=== PATIENT | female | born 1965 | race Caucasian/White ===

== ENCOUNTER 2020-05-10 14:38 | Inpatient (IN) | payer OTHER ==
[2020-05-10] MEDS ORDERED: IPRATROPIUM-ALBUTEROL 3 ML NEB INHALATION STA (14:56)
[2020-05-10] MEDS ORDERED: DEXAMETHASONE SOD PHOSPHATE 10 MG/ML 1 ML VIAL IV STA (14:56)
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
[2020-05-10 15:43] LABS: VBG PH 7.31 (7.31-7.41)
--- NOTE | 2020-05-10 15:44 | XR ---
EXAMINATION TYPE: XR chest 1V portable DATE OF EXAM: 05/10/2020 COMPARISON: NONE HISTORY: Shortness of breath TECHNIQUE: Single frontal view of the chest is obtained. FINDINGS: The heart is markedly enlarged and there is a diffuse interstitial pattern. Subsegmental c onsolidation along the right heart border and right lower lobe. Patient is rotated which may account for the prominence of the right hilum. IMPRESSION: 1. Severe cardiomegaly with right perihilar and lower lobe infiltrate. Interstitial pneumonitis or ve nous congestion the differential diagnosis. 2. Right hilar mass not excluded consider follow-up short-term CT scan chest.
[2020-05-10 15:55] LABS: ALT 15 U/L (4-34); AST 29 U/L (14-36); African American GFR (CKD) >90 (>60 ml/min/1.73 sqM); Albumin 3.5 g/dL (3.5-5.0); Alkaline Phosphatase 101 U/L (38-126); Anion Gap 5 mmol/L; Blood Urea Nitrogen 9 mg/dL (7-17); Calcium 8.6 mg/dL (8.4-10.2); Carbon Dioxide 31 mmol/L (22-30); Chloride 103 mmol/L (98-107); Glucose 84 mg/dL (74-99); Non-African American GFR(CKD) >90 (>60 ml/min/1.73 sqM); Sodium 139 mmol/L (137-145); Total Bilirubin 1.2 mg/dL (0.2-1.3); Total Protein 6.7 g/dL (6.3-8.2)
[2020-05-10 15:57] LABS: Magnesium 1.8 mg/dL (1.6-2.3); Potassium 4.6 mmol/L (3.5-5.1)
[2020-05-10 16:04] LABS: INR 1.2 (<1.2); Partial Thromboplastin Time 23.9 sec (22.0-30.0); Prothrombin Time 11.9 sec (9.0-12.0)
[2020-05-10 16:10] LABS: Anisocytosis Slight; Basophils % (A) 0 %; Eosinophils # (A) 0.1 k/uL (0-0.7); Eosinophils % (A) 1 %; HCT 53.6 % (34.0-46.0); HGB 17.1 gm/dL (11.4-16.0); Hypochromasia Marked; Lymphocytes # (A) 1.7 k/uL (1.0-4.8); Lymphocytes % (A) 18 %; MCH 29.3 pg (25.0-35.0); MCV 91.7 fL (80.0-100.0); Mean Platelet Volume 7.9; Monocytes # (A) 0.5 k/uL (0-1.0); Monocytes % (A) 6 %; Neutrophils % (A) 74 %; Platelet Count 160 k/uL (150-450); RBC 5.84 m/uL (3.80-5.40); RDW 18.4 % (11.5-15.5); WBC 9.5 k/uL (3.8-10.6)
[2020-05-10] MEDS ORDERED: FUROSEMIDE 10 MG/ML 4 ML VIAL IV STA (16:13)
[2020-05-10] MEDS ORDERED: NITROGLYCERIN SL TABS 0.4 MG TAB SUBLINGUAL STA (16:13)
[2020-05-10] MEDS ORDERED: NALOXONE 0.4 MG/ML 1 ML VIAL IV PRN (16:34)
[2020-05-10] MEDS: hydrALAZINE HCL 50 MG TAB PO SCH (18:49)
[2020-05-10] MEDS ORDERED: MELATONIN 3 MG TABLET PO PRN (20:51)
[2020-05-10] MEDS ORDERED: LORazepam 2 MG/ML INJ IV PRN (20:51)
[2020-05-10] MEDS ORDERED: ONDANSETRON 4 MG/2 ML VIAL IVP PRN (20:51)
[2020-05-10] MEDS ORDERED: ALBUTEROL NEBULIZED 2.5 MG/3 ML INHALATION PRN (20:52)
[2020-05-10] MEDS ORDERED: NICOTINE POLACRILEX 2 MG GUM BUCCAL PRN (20:52)
--- NOTE | 2020-05-10 20:59 | P.HPIM ---
History of Present Illness H&P Date: 05/10/20 Chief Complaint: petition for maryann Patient is a 54-year-old female with COPD, hypertension, and tobacco abuse who was brought in by police for a petition. She was petitioned by her social media content specialist initiated been acting bizarre, aggressive, and had not been taking care of herself. On arrival to the emergency department her O2 sat was 81% on room air she was found to be tachycardic with a pulse of 110, and a blood pressure of 183/113. Initial laboratory analysis showed a hemoglobin of 17.1, hematocrit 53.6, ABG showed a pCO2 of 67, remainder of labs were unremarkable. Chest x-ray showed possible pneumonitis versus congestion versus right hilar mass. She was given a dose of steroids and bronchodilators in the emergency department. She was also given a dose of Lasix. Arrangements right for admission. Patient noted that she had not been unable to see her primary care physician as he needed money for her next visit. She also reports that her shortness of breath was so severe she has been unable to take care of herself adequately for last 3-4 weeks. She was supposed to be on home O2 but sent it back to the company she felt it was unsafe as she had been continuing to smoke. She reports that she has had difficulty with cooking her meals and has not had adequate axis to oral intake. Shortness of breath for the last several weeks. Has been feeling so tired and has not been able to get out of bed. She reports that her shortness of breath i s worse with exertion and better with rest. She also has some difficulty lying flat. Personal Hygeine has been minimized +Cough +runny nose + PND No fevers + Chills and night sweats No chest pain + nausea Choking vomiting + edema in legs, feet like lead No chest pain Increased urination, no burning States food sucks, getting deliverd neimans, unable to cook. Was supposed to wear oxygen at home When asked what else she continues to know she states that she has not had sex in a long time, it has been years. Which appears to be very inappropriate response to this question. Review of Systems Pertinent positives and negatives as discussed in HPI, a complete review of systems was performed and all other systems are negative. Past Medical History Past Medical History: COPD, Hypertension History of Any Multi-Drug Resistant Organisms: None Reported Past Surgical History: No Surgical Hx Reported Past Psychological History: Schizophrenia Smoking Status: Current every day smoker Past Alcohol Use History: None Reported Past Drug Use History: None Reported Additional History: Quick smoking a little while ago. Lives alone. No assitive devices Medications and Allergies Home Medications Medication Instructions Recorded Confirmed Type ARIPiprazole [Abilify] 30 mg PO HS 05/10/20 05/10/20 History Albuterol Inhaler [Ventolin Hfa 2 puff INHALATION RT-Q4H PRN 05/10/20 05/10/20 History Inhaler] Aspirin EC [Ecotrin Low Dose] 81 mg PO DAILY 05/10/20 05/10/20 History Atenolol [Tenormin] 50 mg PO DAILY 05/10/20 05/10/20 History Cyanocobalamin (Vitamin B-12) 1,000 mcg PO DAILY 05/10/20 05/10/20 History [Vitamin B-12] Enalapril [Vasotec] 20 mg PO BID 05/10/20 05/10/20 History Ergocalciferol [Vitamin D2] 50,000 unit PO Q7D 05/10/20 05/10/20 History Escitalopram [Lexapro] 20 mg PO DAILY 05/10/20 05/10/20 History Hydrochlorothiazide [Hydrodiuril] 25 mg PO DAILY 05/10/20 05/10/20 History Ipratropium-Albuterol Nebulize 3 ml INHALATION RT-Q4H PRN 05/10/20 05/10/20 History [Duoneb 0.5 mg-3 mg/3 ml Soln] Loratadine [Claritin] 10 mg PO DAILY 05/10/20 05/10/20 History Potassium Chloride ER [K-Dur 10] 10 meq PO DAILY 05/10/20 05/10/20 History Simvastatin [Zocor] 20 mg PO HS 05/10/20 05/10/20 History hydrALAZINE HCL [Apresoline] 100 mg PO TID 05/10/20 05/10/20 History Allergies Allergy/AdvReac Type Severity Reaction Status Date / Time cephalexin [From Keflex] Allergy Unknown Verified 05/10/20 16:13 Physical Exam Osteopathic Statement: *. No significant issues noted on an osteopathic structural exam other than those noted in the History and Physical/Consult. Vitals: Vital Signs Temp Pulse Resp BP Pulse Ox 05/10/20 17:04 100 20 188/118 96 05/10/20 15:25 22 05/10/20 14:40 98.5 F 110 H 22 183/113 81 L Intake and Output 05/10/20 05/10/20 05/10/20 06:59 14:59 22:59 Other: Weight 90.718 kg General: Ill-appearing, appears older than stated age, disheveled, no distress, obese Derm: Dusky appearance to bilateral lower extremities, no unusual rashes/lesions no unusual ecchymoses, warm, dry Head: atraumatic, normocephalic, symmetric Eyes: EOMI, no lid lag, anicteric sclera, pupils equal round reactive to light ENT: Nose and ears atraumatic, no thrush, no pharyngeal erythema Neck: No thyromegaly, no cervical lymphadenopathy, trachea midline, supple Mouth: no lip lesion, mucus membranes moist Cardiovascular: S1S2 reg, no murmur, positive posterior tibial pulse bilateral, no edema, capillary refill less than 2 seconds Lungs: Diffuse wheeze bilateral, no rhonchi, no rales , no accessory muscle use Abdominal: soft, nontender to palpation, no guarding, no appreciable organomegaly, normal bowel sounds Ext: no gross muscle atrophy, muscle strength 5 out of 5 in all 4 extremities grossly, no contractures, Neuro: CN II-XI grossly intact, light touch intact all 4 extremities, finger to nose within normal limits, Psych: Alert, oriented, flat affect Results CBC & Chem 7: 05/10/20 15:15 05/10/20 15:15 Labs: Abnormal Lab Results - Last 24 Hours (Table) 05/10/20 05/10/20 05/10/20 Range/Units 15:15 15:15 15:15 RBC 5.84 H (3.80-5.40) m/uL Hgb 17.1 H (11.4-16.0) gm/dL Hct 53.6 H (34.0-46.0) % RDW 18.4 H (11.5-15.5) % INR 1.2 H (<1.2) VBG pCO2 (37-51) mmHg VBG HCO3 (24-28) mmol/L Carbon Dioxide 31 H (22-30) mmol/L Creatinine 0.43 L (0.52-1.04) mg/dL 05/10/20 Range/Units 15:15 RBC (3.80-5.40) m/uL Hgb (11.4-16.0) gm/dL Hct (34.0-46.0) % RDW (11.5-15.5) % INR (<1.2) VBG pCO2 67 H (37-51) mmHg VBG HCO3 33 H (24-28) mmol/L Carbon Dioxide (22-30) mmol/L Creatinine (0.52-1.04) mg/dL Chest x-ray: report reviewed, image reviewed Thrombosis Risk Factor Assmnt - DVT/VTE Prophylaxis DVT/VTE Prophylaxis: Pharmacologic Prophylaxis ordered Assessment and Plan Assessment: Acute exacerbation of COPD with acute hypoxic respiratory failure -IV steroids, bronchodilators, pulmonary hygiene -Zithromax -Wean O2 as able by doubt we will fully be able to do this as she was supposed to be wearing oxygen at home -Check COVID 19, though this is less likely as patient has not been out of her house and has essentially been bedbound. Lower extremity edema -BNP elevated for age but this may be related to her hypoxemia -Check echocardiogram -Further recommendations to follow -Status post 1 dose of Lasix in the emergency department Hypertensive emergency - atenolol, enalapril, hydralazine, HCTZ resumed -Follow blood pressures Polycythemia -Suspect very to chronic hypoxemia -Follow CBC Schizophrenia - petitioned by her social media content specialist - psych consult Obesity -Structured outpatient weight loss Tobacco abuse - unable to determine when patient quit - nicotine replacement The patient is admitted with an anticipated greater than 2 midnight stay for evaluation of acute exacerbation of COPD. CODE STATUS:Full DVT prophylaxis: SCDs Discussed with: patient, ED physician Anticipated discharge date: 1-[address]: [facility] A total of 65 minutes was spent on the care of this complex patient more than 50% of the time was spent in counseling and care coordination.
[2020-05-10] MEDS ORDERED: ARIPiprazole 15 MG TAB PO SCH (21:30)
[2020-05-10] MEDS: AZITHROMYCIN 500 MG TAB PO SCH (21:34)
[2020-05-10] MEDS: ATORVASTATIN 10 MG TAB PO SCH (21:34)
[2020-05-10] MEDS: LISINOPRIL 20 MG TAB PO SCH (21:36)
[2020-05-10] MEDS: ATENOLOL 50 MG TAB PO SCH (22:37)
[2020-05-10] MEDS: guaiFENesin 600 MG TABLET.ER PO SCH (22:37)
[2020-05-11] MEDS: SODIUM CHLORIDE 0.9% 1,000 ML IV SCH ×2 (00:34→21:07)
[2020-05-11] MEDS: methylPREDNISolone SOD SUCCI 125 MG/2 ML VIAL IV SCH ×4 (00:35→17:41)
[2020-05-11] MEDS: hydrALAZINE HCL 50 MG TAB PO SCH ×4 (00:37→21:06)
[2020-05-11 06:58] LABS: Anisocytosis Slight; HCT 54.8 % (34.0-46.0); HGB 16.4 gm/dL (11.4-16.0); Hypochromasia Marked; MCH 27.7 pg (25.0-35.0); MCHC 29.9 g/dL (31.0-37.0); MCV 92.6 fL (80.0-100.0); Mean Platelet Volume 7.3; Platelet Count 172 k/uL (150-450); RBC 5.91 m/uL (3.80-5.40); RDW 18.4 % (11.5-15.5); WBC 7.7 k/uL (3.8-10.6)
[2020-05-11 07:08] LABS: African American GFR (CKD) >90 (>60 ml/min/1.73 sqM); Anion Gap 4 mmol/L; Blood Urea Nitrogen 13 mg/dL (7-17); Calcium 8.4 mg/dL (8.4-10.2); Carbon Dioxide 33 mmol/L (22-30); Chloride 103 mmol/L (98-107); Glucose 127 mg/dL (74-99); Magnesium 1.9 mg/dL (1.6-2.3); Non-African American GFR(CKD) >90 (>60 ml/min/1.73 sqM); Potassium 4.5 mmol/L (3.5-5.1); Sodium 140 mmol/L (137-145)
[2020-05-11] MEDS: IPRATROPIUM-ALBUTEROL 3 ML NEB INHALATION SCH ×4 (08:04→19:09)
[2020-05-11] MEDS ORDERED: ERGOCALCIFEROL 50,000 UNIT CAP PO SCH (09:00)
--- NOTE | 2020-05-11 11:35 | CT ---
EXAMINATION TYPE: CT chest angio for PE DATE OF EXAM: 05/11/2020 COMPARISON: HISTORY: Pulmonary embolism CT DLP: 406 mGycm CONTRAST: CT chest with contrast and 3D reconstruction with MIP imaging is performed with IV Contrast, patient injected with 100 mL of Isovue 370. Contrast-enhanced CT of the chest was performed through the course of the pulmonary arteries with mary g and mediastinal window settings submitted. 3D reconstruction with MIP imaging was also performed. PULMONARY ARTERIES: The pulmonary arteries and their major tributaries are patent. I do not see ashley dence for sizable filling defect to suggest pulmonary embolic process. LUNGS: The lungs are clear and free of infiltrate. Basilar atelectasis and small effusions. No pulmon sarah nodule or mass is detected. MEDIASTINUM: Thoracic aorta is of normal caliber,however, evaluation is limited given timing of the contrast bolus. If there is concern for thoracic aortic pathology consider PRISCILLA. Correlate clinicall y . The heart is enlarged. Pericardial effusion noted. No evidence for mediastinal mass. No mediast inal lymph nodes greater than 1cm. HILAR STRUCTURES: No evidence for mass. No hilar lymph nodes greater than 1 cm. UPPER ABDOMEN: Nonspecific Left adrenal mass IMPRESSION: 1. No evidence for Pulmonary embolism at this time.
[2020-05-11] MEDS: ASPIRIN 81 MG PO SCH (11:52)
[2020-05-11] MEDS: guaiFENesin 600 MG TABLET.ER PO SCH ×2 (11:53→21:07)
[2020-05-11] MEDS: ATENOLOL 50 MG TAB PO SCH (11:53)
[2020-05-11] MEDS: ESCITALOPRAM 20 MG TAB PO SCH (11:53)
[2020-05-11] MEDS: LISINOPRIL 20 MG TAB PO SCH ×2 (11:54→21:06)
[2020-05-11] MEDS: LORATADINE 10 MG TAB PO SCH (11:59)
[2020-05-11] MEDS: HYDROCHLOROTHIAZIDE 25 MG TAB PO SCH (11:59)
--- NOTE | 2020-05-11 13:16 | ECHOF ---
Referral Reason:chf MEASUREMENTS -------- HEIGHT: 160.0 cm WEIGHT: 90.7 kg BP: 123/85 RVIDd: 4.1 cm (< 3.3) IVSd: 1.3 cm (0.6 - 1.1) LVIDd: 3.9 cm (3.9 - 5.3) LVPWd: 1.2 cm (0.6 - 1.1) IVSs: 1.6 cm LVIDs: 2.2 cm LVPWs: 1.6 cm LA Diam: 3.5 cm (2.7 - 3.8) LAESV Index (A-L): 17.93 ml/m IVSd: 3.1 cm (0.6 - 1.1) Ao Diam: 3.1 cm (2.0 - 3.7) AV Cusp: 1.5 cm (1.5 - 2.6) MV EXCURSION: 10.759 mm (> 18.000) MV EF SLOPE: 18 mm/s (70 - 150) EPSS: 1.0 cm MV E Matthieu: 0.77 m/s MV DecT: 248 ms MV A Matthieu: 0.96 m/s MV E/A Ratio: 0.80 AV maxP.96 mmHg AV meanP.61 mmHg RAP: 15.00 mmHg RVSP: 58.50 mmHg FINDINGS -------- Sinus rhythm. This was a technically good study. The left ventricular size is normal. There is mild concentric left ventricular hypertrophy. Overa ll left ventricular systolic function is normal with, an EF between 60 - 65 %. There is septal flat tening in diastole and systole which is consistent with right ventricular pressure and volume overloa d. The right ventricle is moderately enlarged. Normal LA size by volume 22+/-6 ml/m2. The right atrium is normal in size. Interatrial and interventricular septum intact. There is mild aortic valve sclerosis. There is mild aortic stenosis present. Peak/mean gradient a cross the Aortic Valve is 15.96mmHg / 7.61mmHg. Mild mitral annular calcification present. [id number] tricuspid regurgitation present. There is severe pulmonary hypertension. The rig ht ventricular systolic pressure, as measured by Doppler, is 58.50mmHg. There is no pulmonic regurgitation present. The aortic root size is normal. Normal inferior vena cava with normal inspiratory collapse consistent with estimated right atrial pre ssure of 5 mmHg. There is a small, generalized pericardial effusion present. CONCLUSIONS -------- 1. Sinus rhythm. 2. This was a technically good study. 3. The left ventricular size is normal. 4. There is mild concentric left ventricular hypertrophy. 5. Overall left ventricular systolic function is normal with, an EF between 60 - 65 %. 6. There is septal flattening in diastole and systole which is consistent with right ventricular pres sure and volume overload. 7. The right ventricle is moderately enlarged. 8. Normal LA size by volume 22+/-6 ml/m2. 9. The right atrium is normal in size. 10. Interatrial and interventricular septum intact. 11. There is mild aortic valve sclerosis. 12. There is mild aortic stenosis present. 13. Peak/mean gradient across the Aortic Valve is 15.96mmHg / 7.61mmHg. 14. Mild mitral annular calcification present. 15. [id number] tricuspid regurgitation present. 16. There is severe pulmonary hypertension. 17. The right ventricular systolic pressure, as measured by Doppler, is 58.50mmHg. 18. There is no pulmonic regurgitation present. 19. The aortic root size is normal. 20. Normal inferior vena cava with normal inspiratory collapse consistent with estimated right atrial pressure of 5 mmHg. 21. There is a small, generalized pericardial effusion present. OCE[employer]REIGHT AGENT: Minal Syed RDCS
--- NOTE | 2020-05-11 19:34 | P.PN ---
Subjective Progress Note Date: 05/11/20 (delayed charting seen at 1500) Principal diagnosis: shortness of breath Patient is a 54-year-old female with COPD, hypertension, and tobacco abuse who was brought in by police for a petition. She was petitioned by her social work program coordinator initiated been acting bizarre, aggressive, and had not been taking care of herself. On arrival to the emergency department her O2 sat was 81% on room air she was found to be tachycardic with a pulse of 110, and a blood pressure of 183/113. Initial laboratory analysis showed a hemoglobin of 17.1, hematocrit 53.6, ABG showed a pCO2 of 67, remainder of labs were unremarkable. Chest x-ray showed possible pneumonitis versus congestion versus right hilar mass. She was given a dose of steroids and bronchodilators in the emergency dep artment. She was also given a dose of Lasix. Arrangements right for admission. Patient noted that she had not been unable to see her primary care physician as he needed money for her next visit. She also reports that her shortness of breath was so severe she has been unable to take care of herself adequately for last 3-4 weeks. She was supposed to be on home O2 but sent it back to the company she felt it was unsafe as she had been continuing to smoke. She reports that she has had difficulty with cooking her meals and has not had adequate axis to oral intake. An echocardiogram was done which showed severe pulmonary hypertension with paradoxical septal wall motion. She underwent a CTA of the chest to rule out pulmonary embolism this was negative. She had some improvement by the morning after admission. Patient seen and examined at bedside. She complains of feeling very tired tod ay. States her breathing is somewhat better than yesterday but not quite back to baseline. No chest discomfort. Objective - Vital Signs Vital signs: Vital Signs Temp 97.5 F L 05/11/20 13:55 Pulse 76 05/11/20 16:35 Resp 16 05/11/20 16:35 BP 120/62 05/11/20 16:35 Pulse Ox 89 L 05/11/20 16:35 Intake & Output 05/11/20 05/11/20 05/12/20 06:59 18:59 06:59 Weight 90.718 kg - Exam General: ill appearing, no distress, appears at stated age Derm: warm, dry Head: atraumatic, normocephalic, symmetric Eyes: EOMI, no lid lag, anicteric sclera Mouth: no lip lesion, mucus membranes moist Cardiovascular: S1S2 reg, no murmur, positive posterior tibial pulse bilateral, Lungs: + expiratory wheeze , no accessory muscle use Abdominal: soft, nontender to palpation, no guarding, no appreciable organomegaly Ext: no gross muscle atrophy, no edema, no contractures Neuro: CN II-XI grossly intact, no focal neuro deficits Psych: lethargic, oriented, appropriate affect - Labs CBC & Chem 7: 05/11/20 06:27 05/11/20 06:27 Labs: Abnormal Lab Results - Last 24 Hours (Table) 05/11/20 05/11/20 Range/Units : 06: RBC 5.91 H (3.80-5.40) m/uL Hgb 16.4 H (11.4-16.0) gm/dL Hct 54.8 H (34.0-46.0) % MCHC 29.9 L (31.0-37.0) g/dL RDW 18.4 H (11.5-15.5) % Carbon Dioxide 33 H (22-30) mmol/L Creatinine 0.41 L (0.52-1.04) mg/dL Glucose 127 H (74-99) mg/dL Assessment and Plan Assessment: Acute exacerbation of COPD with acute hypoxic respiratory failure, Severe Pulm HTN -IV steroids, bronchodilators, pulmonary hygiene -Zithromax -Wean O2 as able but doubt we will fully be able to do this as she was supposed to be wearing oxygen at home -Check COVID 19, though this is less likely as patient has not been out of her house and has essentially been bed bound. -CTA negative for pulmonary embolism Hypertensive emergency, resolved -Atenolol, enalapril, hydralazine, HCTZ resumed -Follow blood pressures Polycythemia -Suspect very to chronic hypoxemia -Follow CBC Schizophrenia - petitioned by her social work program coordinator - psych consult Obesity -Structured outpatient weight loss Tobacco abuse - unable to determine when patient quit - nicotine replacement DVT prophylaxis: SCDs Discussed with: patient, nursing Anticipated discharge date: in AM Anticipated discharge place: [facility] A total of 35 minutes was spent on the care of this complex patient more than 50% of the time was spent in counseling and care coordination.
[2020-05-11] MEDS: AZITHROMYCIN 500 MG TAB PO SCH (21:06)
[2020-05-11] MEDS: ARIPiprazole 15 MG TAB PO SCH (21:07)
[2020-05-11] MEDS: ATORVASTATIN 10 MG TAB PO SCH (21:07)
[2020-05-12] MEDS: methylPREDNISolone SOD SUCCI 125 MG/2 ML VIAL IV SCH ×3 (00:01→17:36)
[2020-05-12] MEDS: IPRATROPIUM-ALBUTEROL 3 ML NEB INHALATION SCH ×4 (07:30→18:39)
[2020-05-12] MEDS ORDERED: SYMBICORT 160-4.5 MCG INHALER INHALATION STA (09:02)
[2020-05-12 09:09] LABS: African American GFR (CKD) >90 (>60 ml/min/1.73 sqM); Anion Gap 5 mmol/L; Blood Urea Nitrogen 18 mg/dL (7-17); Calcium 8.6 mg/dL (8.4-10.2); Carbon Dioxide 35 mmol/L (22-30); Chloride 100 mmol/L (98-107); Glucose 103 mg/dL (74-99); Non-African American GFR(CKD) >90 (>60 ml/min/1.73 sqM); Phosphorus 3.6 mg/dL (2.5-4.5); Potassium 4.1 mmol/L (3.5-5.1); Sodium 140 mmol/L (137-145)
[2020-05-12 09:26] LABS: Anisocytosis Slight; HCT 52.7 % (34.0-46.0); HGB 16.1 gm/dL (11.4-16.0); Hypochromasia Marked; MCH 29.2 pg (25.0-35.0); MCHC 30.5 g/dL (31.0-37.0); MCV 95.6 fL (80.0-100.0); Macrocytosis Slight; Mean Platelet Volume 8.5; Platelet Count 171 k/uL (150-450); RBC 5.51 m/uL (3.80-5.40); RDW 18.1 % (11.5-15.5); WBC 18.3 k/uL (3.8-10.6)
[2020-05-12] MEDS: HYDROCHLOROTHIAZIDE 25 MG TAB PO SCH (09:57)
[2020-05-12] MEDS: LISINOPRIL 20 MG TAB PO SCH ×2 (09:57→21:40)
[2020-05-12] MEDS: LORATADINE 10 MG TAB PO SCH (09:58)
[2020-05-12] MEDS: hydrALAZINE HCL 50 MG TAB PO SCH ×3 (09:58→21:40)
[2020-05-12] MEDS: ATENOLOL 50 MG TAB PO SCH (09:58)
[2020-05-12] MEDS: guaiFENesin 600 MG TABLET.ER PO SCH ×2 (09:58→21:40)
[2020-05-12] MEDS: ESCITALOPRAM 20 MG TAB PO SCH (09:58)
[2020-05-12] MEDS: ASPIRIN 81 MG PO SCH (09:58)
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
--- NOTE | 2020-05-12 16:06 | P.PN ---
Subjective Progress Note Date: 05/12/20 (delayed charting seen at 0930) Principal diagnosis: shortness of breath Patient is a 54-year-old female with COPD, hypertension, and tobacco abuse who was brought in by police for a petition. She was petitioned by her social media senior associate initiated been acting bizarre, aggressive, and had not been taking care of herself. On arrival to the emergency department her O2 sat was 81% on room air she was found to be tachycardic with a pulse of 110, and a blood pressure of 183/113. Initial laboratory analysis showed a hemoglobin of 17.1, hematocrit 53.6, ABG showed a pCO2 of 67, remainder of labs were unremarkable. Chest x-ray showed possible pneumonitis versus congestion versus right hilar mass. She was given a dose of steroids and bronchodilators in the emergency dep artment. She was also given a dose of Lasix. Arrangements right for admission. Patient noted that she had not been unable to see her primary care physician as he needed money for her next visit. She also reports that her shortness of breath was so severe she has been unable to take care of herself adequately for last 3-4 weeks. She was supposed to be on home O2 but sent it back to the company she felt it was unsafe as she had been continuing to smoke. She reports that she has had difficulty with cooking her meals and has not had adequate axis to oral intake. An echocardiogram was done which showed severe pulmonary hypertension with paradoxical septal wall motion. She underwent a CTA of the chest to rule out pulmonary embolism this was negative. She had some improvement by the morning after admission. She would sleep and then wake up only when enagaged by questions she liked. She did refuse nebulized breathing treatments. Patient seen and examined at bedside. Indicates that she had some shortness of breath overnight. Breathing is better now. Has not been back. No chest pain, no nausea, no vomiting, no diarrhea. Objective - Vital Signs Vital signs: Vital Signs Temp 98.0 F 05/12/20 12:00 Pulse 88 05/12/20 12:00 Resp 20 05/12/20 12:00 BP 119/70 05/12/20 12:00 Pulse Ox 92 L 05/12/20 12:00 Intake & Output 05/11/20 05/12/20 05/12/20 18:59 06:59 18:59 Intake Total 360 240 Balance 360 240 Weight 90.718 kg 88.1 kg Intake: Oral 360 240 Other: # Voids 1 2 - Exam General: ill appearing, no distress, appears at stated age Derm: warm, dry Head: atraumatic, normocephalic, symmetric Eyes: EOMI, no lid lag, anicteric sclera Mouth: no lip lesion, mucus membranes moist Cardiovascular: S1S2 reg, no murmur, positive posterior tibial pulse bilateral, Lungs: + expiratory wheeze , no accessory muscle use Abdominal: soft, nontender to palpation, no guarding, no appreciable organomegaly Ext: no gross muscle atrophy, no edema, no contractures Neuro: CN II-XI grossly intact, no focal neuro deficits Psych: sleeping awakes to voice, oriented to self will not answer other questions, flat affect - Labs CBC & Chem 7: 05/12/20 07:35 05/12/20 07:35 Labs: Abnormal Lab Results - Last 24 Hours (Table) 05/12/20 05/12/20 Range/Units 07:35 07:35 WBC 18.3 H (3.8-10.6) k/uL RBC 5.51 H (3.80-5.40) m/uL Hgb 16.1 H (11.4-16.0) gm/dL Hct 52.7 H (34.0-46.0) % MCHC 30.5 L (31.0-37.0) g/dL RDW 18.1 H (11.5-15.5) % Carbon Dioxide 35 H (22-30) mmol/L BUN 18 H (7-17) mg/dL Creatinine 0.42 L (0.52-1.04) mg/dL Glucose 103 H (74-99) mg/dL Assessment and Plan Assessment: Acute exacerbation of COPD with acute hypoxic respiratory failure, Severe Pulm HTN -IV steroids transitioned to oral, added in symbicort, bronchodilators, pulmonary hygiene -Zithromax -Wean O2 as able but doubt we will fully be able to do this as she was supposed to be wearing oxygen at home -COVID negative -CTA negative for pulmonary embolism Hypertensive emergency, resolved -Atenolol, enalapril, hydralazine, HCTZ resumed -Follow blood pressures Polycythemia -Suspect very to chronic hypoxemia -Follow CBC Schizophrenia - petitioned by her social media senior associate - psych recs appreciated, plan for discharge to [facility] when stable. Obesity -Structured outpatient weight loss Tobacco abuse - unable to determine when patient quit - nicotine replacement DVT prophylaxis: SCDs Discussed with: patient, nursing Anticipated discharge date: in AM Anticipated discharge place: [facility] A total of 35 minutes was spent on the care of this complex patient more than 50% of the time was spent in counseling and care coordination.
[2020-05-12] MEDS: SODIUM CHLORIDE 0.9% 1,000 ML IV SCH (17:36)
[2020-05-12] MEDS: predniSONE 20 MG TAB PO SCH (18:15)
[2020-05-12] MEDS: SYMBICORT 160-4.5 MCG INHALER INHALATION SCH (18:43)
[2020-05-12] MEDS: ARIPiprazole 15 MG TAB PO SCH (21:40)
[2020-05-12] MEDS: ATORVASTATIN 10 MG TAB PO SCH (21:40)
[2020-05-12] MEDS: AZITHROMYCIN 500 MG TAB PO SCH (21:40)
[2020-05-13] MEDS: SYMBICORT 160-4.5 MCG INHALER INHALATION SCH ×2 (08:28→21:50)
[2020-05-13] MEDS: IPRATROPIUM-ALBUTEROL 3 ML NEB INHALATION SCH ×4 (08:28→21:45)
[2020-05-13] MEDS: LISINOPRIL 20 MG TAB PO SCH ×2 (09:56→20:13)
[2020-05-13] MEDS: guaiFENesin 600 MG TABLET.ER PO SCH ×2 (09:56→20:13)
[2020-05-13] MEDS: ASPIRIN 81 MG PO SCH (09:56)
[2020-05-13] MEDS: HYDROCHLOROTHIAZIDE 25 MG TAB PO SCH (09:57)
[2020-05-13] MEDS: LORATADINE 10 MG TAB PO SCH (09:57)
[2020-05-13] MEDS: ESCITALOPRAM 20 MG TAB PO SCH (09:57)
[2020-05-13] MEDS: hydrALAZINE HCL 50 MG TAB PO SCH ×3 (09:57→20:14)
[2020-05-13] MEDS: predniSONE 20 MG TAB PO SCH (09:57)
[2020-05-13] MEDS: ATENOLOL 50 MG TAB PO SCH (09:57)
--- NOTE | 2020-05-13 10:06 | XR ---
EXAMINATION TYPE: XR chest 1V portable DATE OF EXAM: 05/13/2020 HISTORY: pneumonia. REFERENCE: Previous study dated 05/10/2020. FINDINGS: There is multichamber cardiac enlargement. There are patchy infiltrates present bilaterally . Pleural spaces appear clear. I could not exclude a hiatal hernia behind the heart. IMPRESSION: 1. BILATERAL INFILTRATES. 2. CARDIOMEGALY. 3. I COULD NOT EXCLUDE A HIATAL HERNIA BEHIND THE HEART.
--- NOTE | 2020-05-13 13:40 | P.PN ---
Subjective Progress Note Date: 05/13/20 (delayed charting seen at 0945) Principal diagnosis: shortness of breath Patient is a 54-year-old female with COPD, hypertension, and tobacco abuse who was brought in by police for a petition. She was petitioned by her social media intern initiated been acting bizarre, aggressive, and had not been taking care of herself. On arrival to the emergency department her O2 sat was 81% on room air she was found to be tachycardic with a pulse of 110, and a blood pressure of 183/113. Initial laboratory analysis showed a hemoglobin of 17.1, hematocrit 53.6, ABG showed a pCO2 of 67, remainder of labs were unremarkable. Chest x-ray showed possible pneumonitis versus congestion versus right hilar mass. She was given a dose of steroids and bronchodilators in the emergency dep artment. She was also given a dose of Lasix. Arrangements right for admission. Patient noted that she had not been unable to see her primary care physician as he needed money for her next visit. She also reports that her shortness of breath was so severe she has been unable to take care of herself adequately for last 3-4 weeks. She was supposed to be on home O2 but sent it back to the company she felt it was unsafe as she had been continuing to smoke. She reports that she has had difficulty with cooking her meals and has not had adequate axis to oral intake. An echocardiogram was done which showed severe pulmonary hypertension with paradoxical septal wall motion. She underwent a CTA of the chest to rule out pulmonary embolism this was negative. She had some improvement by the morning after admission. She would sleep and then wake up only when enagaged by questions she liked. She did refuse nebulized breathing treatments however has been more compliant with inhalers. Patient seen and examined at bedside. More awake and alert this morning. States that breathing is better, no nausea, vomiting, no chest pain. Asked her to get out of bed and into a chair today. Objective - Vital Signs Vital signs: Vital Signs Temp 97.8 F 05/13/20 08:00 Pulse 80 05/13/20 08:45 Resp 20 05/13/20 08:00 BP 126/80 05/13/20 08:00 Pulse Ox 94 L 05/13/20 08:00 Intake & Output 05/12/20 05/13/20 05/13/20 18:59 06:59 18:59 Intake Total 480 480 480 Balance 480 480 480 Intake: Oral 480 480 480 Other: # Voids 2 2 - Exam General: ill appearing, no distress, appears at stated age Derm: warm, dry Head: atraumatic, normocephalic, symmetric Eyes: EOMI, no lid lag, anicteric sclera Mouth: no lip lesion, mucus membranes moist Cardiovascular: S1S2 reg, no murmur, positive posterior tibial pulse bilateral, Lungs: + expiratory wheeze , no accessory muscle use Abdominal: soft, nontender to palpation, no guarding, no appreciable organomegaly Ext: no gross muscle atrophy, no edema, no contractures Neuro: CN II-XI grossly intact, no focal neuro deficits Psych: Awake, oriented to self, answering more questions today, flat affect - Labs CBC & Chem 7: 05/12/20 07:35 05/12/20 07:35 Assessment and Plan Assessment: Acute exacerbation of COPD with acute hypoxic respiratory failure, Severe Pulm HTN -Prednisone, added in symbicort, bronchodilators, pulmonary hygiene -Zithromax -Wean O2 as able but doubt we will fully be able to do this as she was supposed to be wearing oxygen at home -COVID negative -CTA negative for pulmonary embolism Hypertensive emergency, resolved -Atenolol, enalapril, hydralazine, HCTZ -Follow blood pressures Leukocytosis - due to steroids anticipate it to come down in AM - Follow CBC - CXR without pneumonia Polycythemia -Suspect very to chronic hypoxemia -Follow CBC Schizophrenia - petitioned by her social media intern - psych recs appreciated, plan for discharge to [facility] when stable. Obesity -Structured outpatient weight loss Tobacco abuse - unable to determine when patient quit - nicotine replacement Still wioth significant wheezing. Monitor overnight. Therapy to see in AM. Anticipate patient to be medically cleared in AM. DVT prophylaxis: SCDs Discussed with: patient, nursing Anticipated discharge date: in AM Anticipated discharge place: [facility] A total of 35 minutes was spent on the care of this complex patient more than 50% of the time was spent in counseling and care coordination.
[2020-05-13] MEDS: SODIUM CHLORIDE 0.9% 1,000 ML IV SCH (17:10)
[2020-05-13] MEDS: ARIPiprazole 15 MG TAB PO SCH (20:13)
[2020-05-13] MEDS: AZITHROMYCIN 500 MG TAB PO SCH (20:13)
[2020-05-13] MEDS: ATORVASTATIN 10 MG TAB PO SCH (20:13)
[2020-05-13] MEDS: ACETAMINOPHEN TAB 325 MG TAB PO PRN (21:47)
[2020-05-14 06:34] LABS: Anisocytosis Slight; HCT 51.4 % (34.0-46.0); HGB 15.7 gm/dL (11.4-16.0); Hypochromasia Marked; MCH 29.2 pg (25.0-35.0); MCHC 30.5 g/dL (31.0-37.0); MCV 95.4 fL (80.0-100.0); Macrocytosis Slight; Mean Platelet Volume 7.7; Platelet Count 135 k/uL (150-450); RBC 5.38 m/uL (3.80-5.40)
[2020-05-14 06:41] LABS: African American GFR (CKD) >90 (>60 ml/min/1.73 sqM); Blood Urea Nitrogen 22 mg/dL (7-17); Calcium 8.6 mg/dL (8.4-10.2); Chloride 94 mmol/L (98-107); Glucose 106 mg/dL (74-99); Magnesium 1.9 mg/dL (1.6-2.3); Non-African American GFR(CKD) >90 (>60 ml/min/1.73 sqM); Sodium 137 mmol/L (137-145)
[2020-05-14 06:48] LABS: Anion Gap 1 mmol/L
[2020-05-14 06:51] LABS: Carbon Dioxide 42 mmol/L (22-30)
[2020-05-14] MEDS: SYMBICORT 160-4.5 MCG INHALER INHALATION SCH ×2 (08:01→21:16)
[2020-05-14] MEDS: IPRATROPIUM-ALBUTEROL 3 ML NEB INHALATION SCH ×4 (08:01→21:16)
[2020-05-14] MEDS: guaiFENesin 600 MG TABLET.ER PO SCH ×3 (08:43→21:12)
[2020-05-14] MEDS: HYDROCHLOROTHIAZIDE 25 MG TAB PO SCH (08:44)
[2020-05-14] MEDS: ASPIRIN 81 MG PO SCH (08:44)
[2020-05-14] MEDS: ATENOLOL 50 MG TAB PO SCH (08:44)
[2020-05-14] MEDS: predniSONE 20 MG TAB PO SCH (08:44)
[2020-05-14] MEDS: LORATADINE 10 MG TAB PO SCH (08:44)
[2020-05-14] MEDS: LISINOPRIL 20 MG TAB PO SCH ×2 (08:44→21:12)
[2020-05-14] MEDS: hydrALAZINE HCL 50 MG TAB PO SCH ×3 (08:44→21:12)
[2020-05-14] MEDS: ESCITALOPRAM 20 MG TAB PO SCH (08:44)
[2020-05-14 11:06] LABS: VBG PH 7.38 (7.31-7.41)
--- NOTE | 2020-05-14 12:35 | P.DS ---
Providers Date of admission: 05/10/20 16:34 Expected date of discharge: 05/14/20 Attending physician: Nida Guardado MD Consults: 05/10/20 16:35 Consult Physician Routine Consulting Provider: Mazin Giordano Consult Reason/Comments: aggressive behavior Do you want consulting provider notified?: Yes Primary care physician: [facility] Course: Patient is a 54-year-old female with COPD, hypertension, and tobacco abuse who was brought in by police for a petition. She was petitioned by her social sciences research scientist initiated been acting bizarre, aggressive, and had not been taking care of herself. On arrival to the emergency department her O2 sat was 81% on room air she was found to be tachycardic with a pulse of 110, and a blood pressure of 183/113. Initial laboratory analysis showed a hemoglobin of 17.1, hematocrit 53.6, ABG showed a pCO2 of 67, remainder of labs were unremarkable. Chest x-ray showed possible pneumonitis versus congestion versus right hilar mass. She was given a dose of steroids and bronchodilators in the emergency department. She was also given a dose of Lasix. Arrangements right for admission. Patient noted that she had not been unable to see her primary care physician as he needed money for her next visit. She also reports that her shortness of breath was so severe she has been unable to take care of herself adequately for last 3-4 weeks. She was supposed to be on home O2 but sent it back to the company she felt it was unsafe as she had been continuing to smoke. She reports that she has had difficulty with cooking her meals and has not had adequate axis to oral intake. An echocardiogram was done which showed severe pulmonary hypertension with paradoxical septal wall motion. She underwent a CTA of the chest to rule out pulmonary embolism this was negative. BMP on 05/14/2020 showed bicarbonate of 42. VBG showed pH of 7.38 and pCO2 of 74. Patient was seen and examined. Sitting at bedside. Patient reports mild improvement in her breathing but continues to complain of shortness of breath. She denies any chest pain or palpitations. No nausea or vomiting. No fever or chills. General: [non toxic], [no distress saturating 92% on room air], [appears at stated age] Derm: [warm], [dry] Head: [atraumatic], [normocephalic], [symmetric] Eyes: [EOMI], [no lid lag], [anicteric sclera] Mouth: [no lip lesion], [mucus membranes moist] Cardiovascular: [S1S2 reg], [no murmur], [positive posterior tibial pulse bilateral], Lungs: [CTA bilateral], [no rhonchi, no rales] , [no accessory muscle use] Abdominal: [soft], [ nontender to palpation], [no guarding], [no appreciable organomegaly] Ext: [no gross muscle atrophy], [no edema], [no contractures] Neuro: [no focal neuro deficits] Psych: [Alert], [oriented], [appropriate affect] Acute exacerbation of COPD with acute hypoxic respiratory failure, Severe Pulm HTN -Prednisone, added in symbicort, bronchodilators, pulmonary hygiene -Zithromax (completed 4 days) -Wean O2 as able but doubt we will fully be able to do this as she was supposed to be wearing oxygen at home -COVID negative -CTA negative for pulmonary embolism Respiratory acidosis with metabolic alkalosis -PH 7.38, pCO2 74, HCO3 42 -Chronic primary respiratory acidosis compensated with metabolic alkalosis Hypertensive emergency, resolved -BP 123/73 -Atenolol, enalapril, hydralazine, HCTZ -Follow blood pressures Leukocytosis -Likely due to steroids, trending down - Follow CBC - CXR without pneumonia Polycythemia -Suspect secondary to chronic hypoxemia -Follow CBC Schizophrenia - petitioned by her social sciences research scientist - psych recs appreciated, plan for discharge to MHU today Obesity -Structured outpatient weight loss Tobacco abuse - unable to determine when patient quit - nicotine replacement [Patient continues to have expiratory wheezes. Suspect chronic. Has chronic compensated respiratory acidosis with metabolic alkalosis. Currently on 2-3 L NC. Discussed with nursing regarding weaning off oxygen. Suspect that she will need home O2 on DC. She is medically cleared for transfer to mental health unit. This complex discharge took about 45 minutes to complete.] Pertinent Studies: Chest x-ray, echocardiogram, chest CTA Patient Condition at Discharge: Fair Plan - Discharge Summary Discharge Rx Participant: No New Discharge Prescriptions: New predniSONE [Deltasone] 60 mg PO DAILY tab Ipratropium-Albuterol Nebulize [Duoneb 0.5 mg-3 mg/3 ml Soln] 3 ml INHALATION RT-QID ml Melatonin 3 mg PO HS PRN tablet PRN Reason: Insomnia guaiFENesin [Mucinex] 1,200 mg PO Q12HR tablet.er Nicotine Polacrilex [Nicorette] 4 mg BUCCAL Q2HR PRN gum PRN Reason: Nicotine Cravings Budesonide-Formot 160-4.5 Mcg [Symbicort 160-4.5 Mcg Inhaler] 2 puff INHALATION RT-BID puff Albuterol Nebulized [Ventolin Nebulized] 2.5 mg INHALATION RT-QID PRN ml PRN Reason: Shortness Of Breath Or Wheezing Continue Simvastatin [Zocor] 20 mg PO HS Potassium Chloride ER [K-Dur 10] 10 meq PO DAILY Ergocalciferol [Vitamin D2 (DRISDOL)] 50,000 unit PO Q7D hydrALAZINE HCL [Apresoline] 100 mg PO TID Loratadine [Claritin] 10 mg PO DAILY Ipratropium-Albuterol Nebulize [Duoneb 0.5 mg-3 mg/3 ml Soln] 3 ml INHALATION RT-Q4H PRN PRN Reason: Shortness Of Breath Hydrochlorothiazide [Hydrodiuril] 25 mg PO DAILY Escitalopram [Lexapro] 20 mg PO DAILY Enalapril [Vasotec] 20 mg PO BID Cyanocobalamin (Vitamin B-12) [Vitamin B-12] 1,000 mcg PO DAILY Aspirin EC [Ecotrin Low Dose] 81 mg PO DAILY Atenolol [Tenormin] 50 mg PO DAILY Albuterol Inhaler [Ventolin Hfa Inhaler] 2 puff INHALATION RT-Q4H PRN PRN Reason: Shortness Of Breath ARIPiprazole [Abilify] 30 mg PO HS Discharge Medication List ARIPiprazole [Abilify] 30 mg PO HS 05/10/20 [History] Albuterol Inhaler [Ventolin Hfa Inhaler] 2 puff INHALATION RT-Q4H PRN 05/10/20 [History] Aspirin EC [Ecotrin Low Dose] 81 mg PO DAILY 05/10/20 [History] Atenolol [Tenormin] 50 mg PO DAILY 05/10/20 [History] Cyanocobalamin (Vitamin B-12) [Vitamin B-12] 1,000 mcg PO DAILY 05/10/20 [History] Enalapril [Vasotec] 20 mg PO BID 05/10/20 [History] Ergocalciferol [Vitamin D2 (DRISDOL)] 50,000 unit PO Q7D 05/10/20 [History] Escitalopram [Lexapro] 20 mg PO DAILY 05/10/20 [History] Hydrochlorothiazide [Hydrodiuril] 25 mg PO DAILY 05/10/20 [History] Ipratropium-Albuterol Nebulize [Duoneb 0.5 mg-3 mg/3 ml Soln] 3 ml INHALATION RT-Q4H PRN 05/10/20 [History] Loratadine [Claritin] 10 mg PO DAILY 05/10/20 [History] Potassium Chloride ER [K-Dur 10] 10 meq PO DAILY 05/10/20 [History] Simvastatin [Zocor] 20 mg PO HS 05/10/20 [History] hydrALAZINE HCL [Apresoline] 100 mg PO TID 05/10/20 [History] Albuterol Nebulized [Ventolin Nebulized] 2.5 mg INHALATION RT-QID PRN ml 05/14/20 [Rx] Budesonide-Formot 160-4.5 Mcg [Symbicort 160-4.5 Mcg Inhaler] 2 puff INHALATION RT-BID puff 05/14/20 [Rx] Ipratropium-Albuterol Nebulize [Duoneb 0.5 mg-3 mg/3 ml Soln] 3 ml INHALATION RT-QID ml 05/14/20 [Rx] Melatonin 3 mg PO HS PRN tablet 05/14/20 [Rx] Nicotine Polacrilex [Nicorette] 4 mg BUCCAL Q2HR PRN gum 05/14/20 [Rx] guaiFENesin [Mucinex] 1,200 mg PO Q12HR tablet.er 05/14/20 [Rx] predniSONE [Deltasone] 60 mg PO DAILY tab 05/14/20 [Rx] Follow up Appointment(s)/Referral(s): Kwasi Reyes DO [Doctor of Osteopathic Medicine] - 1 Week None,Stated [REFERRING] - 1-2 days Activity/Diet/Wound Care/Special Instructions: Diet: Cardiac Follow-up PCP within 3 days of discharge. Follow-up with pulmonology within 1 week of discharge. Take all medications as advised. Plans on transferring to mental health unit. Discharge Disposition: TRANSFER TO PSYCH HOSP/UNIT
[2020-05-14] MEDS: ACETAMINOPHEN TAB 325 MG TAB PO PRN (15:43)
[2020-05-14] MEDS: SODIUM CHLORIDE 0.9% 1,000 ML IV SCH (19:53)
[2020-05-14] MEDS: ATORVASTATIN 10 MG TAB PO SCH (21:12)
[2020-05-14] MEDS: ARIPiprazole 15 MG TAB PO SCH (21:12)
[2020-05-15] MEDS: hydrALAZINE HCL 50 MG TAB PO SCH ×3 (08:38→21:02)
[2020-05-15] MEDS: LISINOPRIL 20 MG TAB PO SCH ×2 (08:38→21:02)
[2020-05-15] MEDS: ASPIRIN 81 MG PO SCH (08:39)
[2020-05-15] MEDS: ATENOLOL 50 MG TAB PO SCH (08:39)
[2020-05-15] MEDS: ESCITALOPRAM 20 MG TAB PO SCH (08:39)
[2020-05-15] MEDS: guaiFENesin 600 MG TABLET.ER PO SCH ×2 (08:39→21:02)
[2020-05-15] MEDS: LORATADINE 10 MG TAB PO SCH (08:39)
[2020-05-15] MEDS: predniSONE 20 MG TAB PO SCH (08:39)
[2020-05-15] MEDS: SYMBICORT 160-4.5 MCG INHALER INHALATION SCH ×2 (09:18→19:42)
[2020-05-15] MEDS: IPRATROPIUM-ALBUTEROL 3 ML NEB INHALATION SCH ×5 (09:18→19:42)
[2020-05-15] MEDS: acetaZOLAMIDE 250 MG TAB PO SCH ×2 (10:02→21:02)
[2020-05-15 10:03] LABS: Anisocytosis Slight; Basophils # (A) 0.1 k/uL (0-0.2); Basophils % (A) 1 %; Eosinophils # (A) 0.2 k/uL (0-0.7); Eosinophils % (A) 1 %; HCT 53.9 % (34.0-46.0); HGB 16.2 gm/dL (11.4-16.0); Hypochromasia Marked; Lymphocytes # (A) 2.5 k/uL (1.0-4.8); Lymphocytes % (A) 18 %; MCH 28.1 pg (25.0-35.0); MCHC 30.1 g/dL (31.0-37.0); MCV 93.5 fL (80.0-100.0); Mean Platelet Volume 7.7; Monocytes % (A) 7 %; Neutrophils % (A) 72 %; Platelet Count 142 k/uL (150-450); RBC 5.76 m/uL (3.80-5.40); RDW 17.9 % (11.5-15.5)
[2020-05-15 10:14] LABS: African American GFR (CKD) >90 (>60 ml/min/1.73 sqM); Anion Gap 4 mmol/L; Blood Urea Nitrogen 23 mg/dL (7-17); Calcium 8.4 mg/dL (8.4-10.2); Carbon Dioxide 37 mmol/L (22-30); Chloride 97 mmol/L (98-107); Glucose 91 mg/dL (74-99); Non-African American GFR(CKD) >90 (>60 ml/min/1.73 sqM); Potassium 4.6 mmol/L (3.5-5.1); Sodium 138 mmol/L (137-145)
[2020-05-15 10:54] VITALS: BMI 31.2
--- NOTE | 2020-05-15 13:37 | P.CON ---
Consult Note - . Consult date: 05/15/20 Assessment/Plan:: Clinical Problems: Schizophrenia multiple episodes currently in partial remission, poor compliance with medication, COPD, hypertension Interim history: I reviewed the medical record, discussed the case with the manager social work and interviewed the patient. Her only complaint was feeling tired and having back pain. She complained that the beds were uncomfortable. She denied experiencing auditory hallucinations and did not follow to her chronic delusional beliefs that people had broke into her apartment, stole her furniture and molested her. She had been compliant with prescribed medications including Abilify 15 mg at bedtime. She is posed no management problem on the medicine unit and had no episodes of behavioral dyscontrol. Mental status exam: She presented as an obese 54-year-old female who is laying comfortably on her bed. She made intermittent eye contact. She had no prominent physical abnormalities. She had a flat facial expression. She was alert and oriented to person and place. She showed psychomotor retardation but no abnormal involuntary movements. Her speech was spontaneous with decreased rate and rhythm. She had no articulation difficulties. Her affect was flat. She denied suicidal ideation or wishes. She denied homicidal ideation. She denied feeling hopeless, helpless or worthless. She did not ruminate about her chronic delusional beliefs. She did not express ideas reference or paranoid ideation. Her thinking was very concrete. Associations were goal-directed. She denied hallucinations did not appear to be responding to internal stimuli. Assessment: She is much less irritable, distressed and psychotic and when she was initially admitted to the surgery unit. I suspect that the improvement in her psychiatric symptoms are related to the supervise administration of her antipsychotic medication. At this time, her management does not require inpatient psychiatric care and she may be transferred to outpatient services. Plan: Discharge home with follow-up through community mental health. Recommended community mental health obtained a order for involuntary treatment and transition to Abilify from oral to the long acting injection. Thank you is consult. Psychiatry will sign off.
--- NOTE | 2020-05-15 14:58 | P.PN ---
Subjective Progress Note Date: 05/15/20 Principal diagnosis: Shortness of breath Patient was seen and examined. No acute events overnight. Sleeping in bed and appears somewhat lethargic. Answering questions appropriately. States that her breathing is "terrible". She denies any chest pain or palpitations. No nausea or vomiting. No fever or chills. States that she feels sleepy. Objective - Vital Signs Vital signs: Vital Signs Temp 97.9 F 05/15/20 07:00 Pulse 75 05/15/20 09:34 Resp 16 05/15/20 08:38 BP 148/79 05/15/20 07:00 Pulse Ox 90 L 05/15/20 07:00 Intake & Output 05/14/20 05/15/20 05/15/20 18:59 06:59 18:59 Intake Total 458 250 Balance 458 250 Weight 80 kg 80 kg Intake: Oral 458 250 Other: Voiding Method Toilet Toilet # Voids 3 2 - Exam General: [Appears lethargic], [no distress saturating 92% on 3 L and see], [ appears at stated age] Derm: [warm], [dry] Head: [atraumatic], [normocephalic], [symmetric] Eyes: [EOMI], [no lid lag], [anicteric sclera] Mouth: [no lip lesion], [mucus membranes moist] Cardiovascular: [S1S2 reg], [no murmur], [positive posterior tibial pulse bilateral], Lungs: [Wheezing bilateral], [no rhonchi, no rales] , [no accessory muscle use] Abdominal: [soft], [ nontender to palpation], [no guarding], [no appreciable organomegaly] Ext: [no gross muscle atrophy], [no edema], [no contractures] Neuro: [no focal neuro deficits] Psych: [Alert], [oriented], [appropriate affect] - Labs CBC & Chem 7: 05/15/20 09:26 05/15/20 09:26 Labs: Abnormal Lab Results - Last 24 Hours (Table) 05/15/20 05/15/20 Range/Units 09: 09:26 WBC 14.0 H (3.8-10.6) k/uL RBC 5.76 H (3.80-5.40) m/uL Hgb 16.2 H (11.4-16.0) gm/dL Hct 53.9 H (34.0-46.0) % MCHC 30.1 L (31.0-37.0) g/dL RDW 17.9 H (11.5-15.5) % Plt Count 142 L (150-450) k/uL Neutrophils # 10.0 H (1.3-7.7) k/uL Chloride 97 L (98-107) mmol/L Carbon Dioxide 37 H (22-30) mmol/L BUN 23 H (7-17) mg/dL Creatinine 0.49 L (0.52-1.04) mg/dL Assessment and Plan Assessment: Acute exacerbation of COPD with acute hypoxic respiratory failure, Severe Pulm HTN -Prednisone, symbicort, bronchodilators, pulmonary hygiene -Zithromax (completed 4 days) -Wean O2 as able but doubt we will fully be able to do this as she was supposed to be wearing oxygen at home -COVID negative -CTA negative for pulmonary embolism -Repeat chest x-ray tomorrow Respiratory acidosis with metabolic alkalosis -PH 7.38, pCO2 74, HCO3 42 -Chronic primary respiratory acidosis compensated with metabolic alkalosis -Started on Diamox therapy Hypertensive emergency, resolved -BP 148/79 -Atenolol, enalapril, hydralazine, HCTZ -Follow blood pressures Leukocytosis -Likely due to steroids, trending down - Follow CBC - CXR without pneumonia Polycythemia -Suspect secondary to chronic hypoxemia -Follow CBC Schizophrenia - petitioned by her psychosocial rehabilitation counselor - psych recs appreciated, plan for discharge to MHU today Obesity -Structured outpatient weight loss Tobacco abuse - unable to determine when patient quit - nicotine replacement [Patient continues to have expiratory wheezes. Suspect chronic. Has chronic compensated respiratory acidosis with metabolic alkalosis. Currently on 2-3 L NC. Suspect that she will need home O2 on DC. She has been cleared by psychiatry. Given her increased fatigue and lethargy, and addition of Diamox, will monitor her for 1 more night. Anticipate DC home in 1-2 days if patient continues to show improvement and if bicarb improves.]
[2020-05-15 15:52] LABS: Anisocytosis Slight; Basophils % (A) 0 %; Eosinophils # (A) 0.1 k/uL (0-0.7); Eosinophils % (A) 1 %; HGB 16.8 gm/dL (11.4-16.0); Hypochromasia Marked; Lymphocytes # (A) 0.7 k/uL (1.0-4.8); Lymphocytes % (A) 6 %; MCH 28.7 pg (25.0-35.0); MCV 95.7 fL (80.0-100.0); Macrocytosis Slight; Mean Platelet Volume 8.2; Monocytes # (A) 0.3 k/uL (0-1.0); Monocytes % (A) 2 %; Neutrophils # (A) 10.8 k/uL (1.3-7.7); Neutrophils % (A) 91 %; Platelet Count 135 k/uL (150-450); RBC 5.86 m/uL (3.80-5.40); RDW 17.9 % (11.5-15.5); WBC 11.9 k/uL (3.8-10.6)
[2020-05-15 15:53] LABS: HCT 56.1 % (34.0-46.0)
[2020-05-15 15:55] LABS: African American GFR (CKD) >90 (>60 ml/min/1.73 sqM); Anion Gap 4 mmol/L; Blood Urea Nitrogen 22 mg/dL (7-17); Calcium 8.7 mg/dL (8.4-10.2); Carbon Dioxide 35 mmol/L (22-30); Chloride 97 mmol/L (98-107); Glucose 228 mg/dL (74-99); Non-African American GFR(CKD) >90 (>60 ml/min/1.73 sqM); Potassium 4.3 mmol/L (3.5-5.1); Sodium 136 mmol/L (137-145)
[2020-05-15] MEDS: SODIUM CHLORIDE 0.9% 1,000 ML IV SCH (18:08)
[2020-05-15] MEDS: ATORVASTATIN 10 MG TAB PO SCH (21:02)
[2020-05-15] MEDS: ARIPiprazole 15 MG TAB PO SCH (21:02)
[2020-05-16] MEDS: IPRATROPIUM-ALBUTEROL 3 ML NEB INHALATION SCH ×2 (08:05→11:49)
[2020-05-16] MEDS: SYMBICORT 160-4.5 MCG INHALER INHALATION SCH (08:05)
[2020-05-16 08:12] VITALS: BP 152/93; PULSE 65; RESP 20; TEMP 97.9
[2020-05-16 08:32] LABS: African American GFR (CKD) >90 (>60 ml/min/1.73 sqM); Anion Gap 3 mmol/L; Blood Urea Nitrogen 21 mg/dL (7-17); Calcium 8.4 mg/dL (8.4-10.2); Carbon Dioxide 31 mmol/L (22-30); Chloride 104 mmol/L (98-107); Glucose 80 mg/dL (74-99); Non-African American GFR(CKD) >90 (>60 ml/min/1.73 sqM); Sodium 138 mmol/L (137-145)
[2020-05-16 08:45] LABS: Potassium 4.5 mmol/L (3.5-5.1)
--- NOTE | 2020-05-16 08:57 | XR ---
EXAMINATION TYPE: XR chest 1V portable DATE OF EXAM: 05/16/2020 COMPARISON: 05/13/2020 HISTORY: Shortness of breath TECHNIQUE: Single frontal view of the chest is obtained. FINDINGS: There is some bilateral lower lobe infiltrate and small effusion. Nodular density in the l eft upper lobe measuring 1 cm. There is a new pleural-based density along the lateral margin of the r ight upper lobe. Heart is enlarged. No pneumothorax. IMPRESSION: 1. Bilateral lower lobe infiltrate and small right effusion. 2. Pleural-based density along the right upper lobe laterally.
[2020-05-16] MEDS: acetaZOLAMIDE 250 MG TAB PO SCH (09:22)
[2020-05-16] MEDS: ASPIRIN 81 MG PO SCH (09:22)
[2020-05-16] MEDS: LISINOPRIL 20 MG TAB PO SCH (09:23)
[2020-05-16] MEDS: LORATADINE 10 MG TAB PO SCH (09:23)
[2020-05-16] MEDS: ESCITALOPRAM 20 MG TAB PO SCH (09:23)
[2020-05-16] MEDS: ATENOLOL 50 MG TAB PO SCH (09:23)
[2020-05-16] MEDS: guaiFENesin 600 MG TABLET.ER PO SCH (09:23)
[2020-05-16] MEDS: hydrALAZINE HCL 50 MG TAB PO SCH (09:23)
[2020-05-16] MEDS: predniSONE 20 MG TAB PO SCH (09:23)
--- NOTE | 2020-05-16 11:19 | CDI ---
Documentation Clarification Form Date: 05/16/2020 10:45:22 AM From: Jocelyn Thakkar RN, CCDS Admit Date: 05/10/2020 04:34:00 PM Patient Name: Kaye Centeno Visit Number: [id number] Discharge Date: ATTENTION: The Clinical Documentation Specialists (CDI) and [facility] Coding Staff appreciate your assistance in clarifying documentation. Please respond to the clarification below the line at the bottom and electronically sign. The CDI & [facility] Coding staff will review the response and follow-up if needed. Please note: Queries are made part of the Legal Health Record. If you have any questions, please contact the author of this message via ITS. Dr. Priti Esparza 05/10 ED assessment: Patient has features of both COPD and heart failure, is documented. Clarification is requested for heart failure specificity or to rule it out. History/Risk Factors: COPD, Hypertension, Schizophrenia Current smoker Clinical Indicators: 54-year-old female present to ED with complaints of mild swelling in her legs, and shortness of breath, worse with laying flat. In ED her oxygen saturation was 81 % on room air. heart rate of 110. She was wheezing at bedside. 05/10 @14:40 VS/Pulse OX: 183/113 110 22 98.5 81 % RA 05/10 BNP: 2970 05/10 Echocardiogram Results: Overall left ventricular systolic function is normal with, an EF between 60-65 % There is septal flattening in diastole and systole with is consistent with right ventricular pressure and volume overload. 05/10 EKG: Ventricular rate 105, sinus tachycardia. 05/10 Chest X Ray: Severe cardiomegaly with right perihilar and lower lobe infiltrate. Interstitial pneumonitis or venous congestion is the differential diagnosis. Treatment: Lasix 40 mg x1 Ventolin Nebulized inhalation qid prn Tenormin 50 po daily Lipitor 10 mg po hs\ Diamox 250 mg po bid Zestril 40 mg po bid In your professional opinion, can you please clarify the acuity and type of CHF if known? Diastolic Heart Failure: Acute Chronic Acute on Chronic Systolic & Diastolic Heart Failure: Acute Chronic Acute on Chronic Heart Failure Unable to Determine Other, please specify Heart Failure ruled out (Last Revision: February 2018) Heart Failure ruled out MTDD
--- NOTE | 2020-05-16 12:55 | P.PN ---
Subjective Progress Note Date: 05/16/20 Principal diagnosis: Shortness of breath Patient was seen and examined. No acute events overnight. Patient continues to appear sleepy but according to nursing able to interact appropriately when needed. Answering questions appropriately. Patient reports slight improvement in her breathing. She denies any chest pain or palpitations. No nausea or vomiting. No fever or chills. Objective - Vital Signs Vital signs: Vital Signs Temp 97.9 F 05/16/20 06:46 Pulse 65 05/16/20 06:46 Resp 20 05/16/20 06:46 BP 152/93 05/16/20 06:46 Pulse Ox 85 L 05/16/20 11:50 Intake & Output 05/15/20 05/16/20 05/16/20 18:59 06:59 18:59 Intake Total 250 Balance 250 Weight 80 kg 81.5 kg Intake: Oral 250 Other: Voiding Method Toilet Toilet # Voids 1 1 - Exam General: [Appears lethargic], [no distress saturating 92% on 3 L], [appears at stated age] Derm: [warm], [dry] Head: [atraumatic], [normocephalic], [symmetric] Eyes: [EOMI], [no lid lag], [anicteric sclera] Mouth: [no lip lesion], [mucus membranes moist] Cardiovascular: [S1S2 reg], [no murmur], [positive posterior tibial pulse bilateral], Lungs: [Wheezing bilateral], [no rhonchi, no rales] , [no accessory muscle use] Abdominal: [soft], [ nontender to palpation], [no guarding], [no appreciable organomegaly] Ext: [no gross muscle atrophy], [no edema], [no contractures] Neuro: [no focal neuro deficits] Psych: [Alert], [oriented], [appropriate affect] - Labs CBC & Chem 7: 05/15/20 15:20 05/16/20 07:43 Labs: Abnormal Lab Results - Last 24 Hours (Table) 05/15/20 05/15/20 05/16/20 Range/Units 15:20 15: 07:43 WBC 11.9 H (3.8-10.6) k/uL RBC 5.86 H (3.80-5.40) m/uL Hgb 16.8 H (11.4-16.0) gm/dL Hct 56.1 H (34.0-46.0) % MCHC 30.0 L (31.0-37.0) g/dL RDW 17.9 H (11.5-15.5) % Plt Count 135 L (150-450) k/uL Neutrophils # 10.8 H (1.3-7.7) k/uL Lymphocytes # 0.7 L (1.0-4.8) k/uL Sodium 136 L (137-145) mmol/L Chloride 97 L (98-107) mmol/L Carbon Dioxide 35 H 31 H (22-30) mmol/L BUN 22 H 21 H (7-17) mg/dL Creatinine 0.51 L (0.52-1.04) mg/dL Glucose 228 H (74-99) mg/dL Assessment and Plan Assessment: Acute exacerbation of COPD with acute hypoxic respiratory failure, Severe Pulm HTN -Prednisone, symbicort, bronchodilators, pulmonary hygiene -Zithromax (completed 4 days) -Wean O2 as able but doubt we will fully be able to do this as she was supposed to be wearing oxygen at home -COVID negative -CTA negative for pulmonary embolism -6 minute walk test Respiratory acidosis with metabolic alkalosis -PH 7.38, pCO2 74, HCO3 42 -Chronic primary respiratory acidosis compensated with metabolic alkalosis -Patient's bicarbonate has improved from 42-31 at the time of discharge with 3 doses of Diamox, will defer to pulmonology in the outpatient setting for con tinuation of therapy Hypertensive emergency, resolved -BP 152/93 -Atenolol, enalapril, hydralazine, HCTZ -Follow blood pressures Leukocytosis -Likely due to steroids, trending down - Follow CBC - CXR without pneumonia Polycythemia -Suspect secondary to chronic hypoxemia -Follow CBC Schizophrenia - petitioned by her social media director - psych recs appreciated, plan for discharge to [facility]HU today Obesity -Structured outpatient weight loss Tobacco abuse - unable to determine when patient quit - nicotine replacement [Patient continues to have expiratory wheezes. Suspect chronic. Has chronic compensated respiratory acidosis with metabolic alkalosis. Currently on 2-3 L NC. She will need home O2 on DC. She has been cleared by psychiatry with plans to go [facility]. Suspect that patient is at baseline. Anticipate DC today. All medications refilled. This complex discharge took about 35 minutes to complete.]
== END 2020-05-16 14:05 | disposition home or self-care (01) | DRG 190 ==
LOC: EC 14:38 → EEVIPCON 16:34 → 3SCARD 16:34 → 4SSUR 05-14 18:44
PROVIDERS: ADMIT Internal Medicine; ATTEND Internal Medicine
DX: J44.1 Chronic obstructive pulmonary disease with (acute) exacerbation (principal); J96.01 Acute respiratory failure with hypoxia; I16.1 Hypertensive emergency; E87.4 Mixed disorder of acid-base balance; F17.200 Nicotine dependence, unspecified, uncomplicated; Z60.2 Problems related to living alone; D75.1 Secondary polycythemia; I27.20 Pulmonary hypertension, unspecified; I11.0 Hypertensive heart disease with heart failure; R45.850 Homicidal ideations; T38.0X5A Adverse effect of glucocorticoids and synthetic analogues, initial encounter; Z20.828 Contact with and (suspected) exposure to other viral communicable diseases; F20.9 Schizophrenia, unspecified; E66.9 Obesity, unspecified; Z79.82 Long term (current) use of aspirin; Z79.899 Other long term (current) drug therapy; Z88.1 Allergy status to other antibiotic agents; Z68.31 Body mass index [BMI] 31.0-31.9, adult; Z91.14 Patient's other noncompliance with medication regimen; Z74.01 Bed confinement status
CPT/HCPCS: 36415; 71045; 71275; 80048; 80053; 82803; 83605; 83735; 83880; 84100; 84443; 84484; 85025; 85027; 85610; 85730; 93005; 93306; 94640; 96374; 96375; 96376; 99285

== ENCOUNTER 2021-01-17 16:17 | Emergency (ER) | payer OTHER ==
[2021-01-17 16:39] VITALS: BP 159/85; PULSE 85; RESP 16; TEMP 98
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
[2021-01-17 17:47] LABS: Amphetamine Screen,Urine Not Detected (NotDetected); Barbiturate Screen,Urine Not Detected (NotDetected); Benzodiazepines Screen,Urine Not Detected (NotDetected); Cocaine Screen,Urine Not Detected (NotDetected); Methadone Screen, Urine Not Detected (NotDetected); Opiate Screen,Urine Not Detected (NotDetected); Oxycodone Screen, Urine Not Detected (NotDetected); Phencyclidine Screen,Urine Not Detected (NotDetected); Tricyclic Antidepressant,Urine Not Detected (NotDetected); Urn Cannabinoid Scrn Not Detected (NotDetected)
[2021-01-17] MEDS ORDERED: NICOTINE 21MG/24HR PATCH TRANSDERM STA (20:52)
[2021-01-17] MEDS ORDERED: ARIPiprazole 15 MG TAB PO SCH (22:15)
== END 2021-01-18 06:26 | disposition other institution (70) ==
LOC: EC 16:17
DX: F20.9 Schizophrenia, unspecified (principal); E78.5 Hyperlipidemia, unspecified; I10 Essential (primary) hypertension; J44.9 Chronic obstructive pulmonary disease, unspecified; Z79.52 Long term (current) use of systemic steroids; Z79.82 Long term (current) use of aspirin; Z79.899 Other long term (current) drug therapy; Z20.822 Contact with and (suspected) exposure to COVID-19
CPT/HCPCS: 82075; 80306; 87635; 99285; S4990

== ENCOUNTER 2021-07-23 22:00 | Emergency (ER) | payer OTHER ==
[2021-07-23 22:13] VITALS: RESP 18
[2021-07-23] MEDS ORDERED: SODIUM CHLORIDE 0.9% 500 ML 500 ML IV STA (22:25)
[2021-07-23] MEDS ORDERED: MECLIZINE 12.5 MG TAB PO STA (22:25)
[2021-07-23] MEDS ORDERED: ONDANSETRON 4 MG/2 ML VIAL IVP STA (22:25)
[2021-07-23 22:59] LABS: Basophils % (A) 0 %; Eosinophils # (A) 0.2 k/uL (0-0.7); Eosinophils % (A) 1 %; HCT 43.8 % (34.0-46.0); HGB 14.4 gm/dL (11.4-16.0); Lymphocytes # (A) 2.1 k/uL (1.0-4.8); Lymphocytes % (A) 17 %; MCH 31.8 pg (25.0-35.0); MCHC 32.9 g/dL (31.0-37.0); MCV 96.6 fL (80.0-100.0); Mean Platelet Volume 7.4; Monocytes # (A) 0.5 k/uL (0-1.0); Monocytes % (A) 4 %; Neutrophils # (A) 9.5 k/uL (1.3-7.7); Neutrophils % (A) 76 %; Platelet Count 174 k/uL (150-450); RBC 4.53 m/uL (3.80-5.40); RDW 14.1 % (11.5-15.5); WBC 12.5 k/uL (3.8-10.6)
--- NOTE | 2021-07-23 23:01 | CT ---
EXAMINATION TYPE: CT brain wo con DATE OF EXAM: 07/23/2021 COMPARISON: None HISTORY: dizziness, vertigo, nausea CT DLP: 1127.4 mGycm Automated exposure control for dose reduction was used. Ventricles and sulci appear normal. There is no mass effect nor midline shift. There is no sign of in tracranial hemorrhage. Calvarium appears normal. Skull base is intact. IMPRESSION: Normal unenhanced head CT scan..
[2021-07-23 23:22] LABS: Appearance,Urine Cloudy (Clear); Bacteria,Urine Rare /hpf; Bilirubin,Urine Negative (Negative); Blood,Urine Negative (Negative); Color,Urine Yellow; Glucose,Urine (UA) Negative (Negative); Ketones,Urine Negative (Negative); Leukocyte Esterase,Urine Negative (Negative); Mucus,Urine Rare /hpf; Nitrite,Urine Negative (Negative); Protein,Urine Trace (Negative); RBC,Urine <1 /hpf (0-5); Specific Gravity,Urine 1.025 (1.001-1.035); Squamous Epithelial Cell,Urine 3 /hpf (0-4); WBC,Urine 2 /hpf (0-5)
[2021-07-23 23:48] LABS: ALT 16 U/L (4-34); AST 26 U/L (14-36); African American GFR (CKD) >90 (>60 ml/min/1.73 sqM); Albumin 3.9 g/dL (3.5-5.0); Alkaline Phosphatase 105 U/L (38-126); Amylase 61 U/L (30-110); Anion Gap 6 mmol/L; Blood Urea Nitrogen 18 mg/dL (7-17); Calcium 9.1 mg/dL (8.4-10.2); Carbon Dioxide 36 mmol/L (22-30); Chloride 99 mmol/L (98-107); Glucose 122 mg/dL (74-99); Lipase 85 U/L (23-300); Non-African American GFR(CKD) >90 (>60 ml/min/1.73 sqM); Potassium 4.1 mmol/L (3.5-5.1); Sodium 141 mmol/L (137-145); Total Bilirubin 0.2 mg/dL (0.2-1.3); Total Protein 7.2 g/dL (6.3-8.2)
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
[2021-07-24 02:06] VITALS: BP 127/63; PULSE 79; TEMP 98.4
== END 2021-07-24 01:57 | disposition home or self-care (01) ==
LOC: EC 22:00
DX: R42 Dizziness and giddiness (principal); J44.9 Chronic obstructive pulmonary disease, unspecified; E78.5 Hyperlipidemia, unspecified; I10 Essential (primary) hypertension; F20.9 Schizophrenia, unspecified; Z79.899 Other long term (current) drug therapy
CPT/HCPCS: 36415; 80053; 82150; 83690; 85025; 81001; 70450; 99284; 96374; J2405

== ENCOUNTER 2024-06-28 09:08 | Inpatient (IN) | payer OTHER ==
[~2024-06-28 09:08] MED LIST: AZITHROMYCIN 500 MG VIAL IVPB ONE; BUDESONIDE 1 MG/2 ML NEBU INHALATION ONE; FORMOTEROL FUMARATE 20 MCG/2 ML NEBU INHALATION ONE; FUROSEMIDE 10 MG/ML 4 ML VIAL ONE; IPRATROPIUM-ALBUTEROL 3 ML NEB ONE; WATER FOR INJECTION, STERILE 10 ML IV ONE; methylPREDNISolone SOD SUCCI 125 MG/2 ML VIAL ONE
[2024-06-28] MEDS ORDERED: HEPARIN SOD,PORK IN 0.45% NACL 250 ML IV ONE (09:52)
[2024-06-28] MEDS ORDERED: HEPARIN SODIUM 1,000 UN/ML (10ML VL) ONE (10:01)
[2024-06-28] MEDS ORDERED: methylPREDNISolone SOD SUCCI 125 MG/2 ML VIAL ONE ×3 (13:02→18:09)
[2024-06-28] MEDS ORDERED: metFORMIN 500 MG TAB ONE (18:08)
[2024-06-28] MEDS ORDERED: IPRATROPIUM-ALBUTEROL 3 ML NEB ONE (19:41)
[2024-06-28] MEDS ORDERED: BUDESONIDE 1 MG/2 ML NEBU INHALATION ONE (19:41)
[2024-06-28] MEDS ORDERED: FORMOTEROL FUMARATE 20 MCG/2 ML NEBU INHALATION ONE (19:42)
[2024-06-28] MEDS ORDERED: TAMSULOSIN 0.4 MG CAP.ER.24H PO ONE (20:44)
[2024-06-28] MEDS ORDERED: MONTELUKAST 10 MG TAB ONE (20:44)
[2024-06-28] MEDS ORDERED: CHOLECALCIFEROL 125 MCG (5000 IU) TABLET ONE (20:44)
[2024-06-28] MEDS ORDERED: ATORVASTATIN 20 MG TAB ONE (20:45)
[2024-06-28] MEDS ORDERED: SODIUM CHLORIDE 0.9% 250 ML BAG ONE (23:59)
[2024-06-29] MEDS ORDERED: methylPREDNISolone SOD SUCCI 125 MG/2 ML VIAL ONE ×4 (01:04→23:54)
[2024-06-29] MEDS ORDERED: HEPARIN SOD,PORK IN 0.45% NACL 250 ML IV ONE ×2 (01:12→16:26)
[2024-06-29] MEDS ORDERED: FORMOTEROL FUMARATE 20 MCG/2 ML NEBU INHALATION ONE (03:05)
[2024-06-29] MEDS ORDERED: BUDESONIDE 1 MG/2 ML NEBU INHALATION ONE (03:05)
[2024-06-29] MEDS ORDERED: IPRATROPIUM-ALBUTEROL 3 ML NEB ONE ×2 (03:05→18:40)
[2024-06-29] MEDS ORDERED: INSULIN ASPART (NovoLOG) 100 UNIT/ML VIAL SQ ONE ×4 (06:31→23:56)
[2024-06-29] MEDS ORDERED: ASPIRIN 81 MG ONE (10:19)
[2024-06-29] MEDS ORDERED: CHOLECALCIFEROL 125 MCG (5000 IU) TABLET ONE (10:20)
[2024-06-29] MEDS ORDERED: TAMSULOSIN 0.4 MG CAP.ER.24H PO ONE (20:00)
[2024-06-29] MEDS ORDERED: ATORVASTATIN 20 MG TAB ONE (20:00)
[2024-06-29] MEDS ORDERED: MONTELUKAST 10 MG TAB ONE (20:04)
[2024-06-29] MEDS ORDERED: INSULIN DETEMIR (LEVEMIR) 100 UNIT/ML SYR SQ ONE (23:59)
[2024-06-29] MEDS ORDERED: AZITHROMYCIN 500 MG VIAL IVPB ONE (23:59)
[2024-06-29] MEDS ORDERED: SODIUM CHLORIDE 0.9% 250 ML BAG ONE (23:59)
[2024-06-30] MEDS ORDERED: HEPARIN SOD,PORK IN 0.45% NACL 250 ML IV ONE (04:46)
[2024-06-30] MEDS ORDERED: methylPREDNISolone SOD SUCCI 125 MG/2 ML VIAL ONE ×4 (05:30→23:39)
[2024-06-30] MEDS ORDERED: BUDESONIDE 1 MG/2 ML NEBU INHALATION ONE (06:01)
[2024-06-30] MEDS ORDERED: FORMOTEROL FUMARATE 20 MCG/2 ML NEBU INHALATION ONE (06:01)
[2024-06-30] MEDS ORDERED: INSULIN ASPART (NovoLOG) 100 UNIT/ML VIAL SQ ONE ×4 (06:38→23:40)
[2024-06-30] MEDS ORDERED: ASPIRIN 81 MG ONE (09:19)
[2024-06-30] MEDS ORDERED: FAMOTIDINE 20 MG/2 ML VIAL ONE ×2 (09:20→21:13)
[2024-06-30] MEDS ORDERED: APIXABAN 5 MG TAB ONE ×2 (12:29→21:14)
[2024-06-30] MEDS ORDERED: metFORMIN 500 MG TAB ONE (17:45)
[2024-06-30] MEDS ORDERED: MONTELUKAST 10 MG TAB ONE (21:12)
[2024-06-30] MEDS ORDERED: TAMSULOSIN 0.4 MG CAP.ER.24H PO ONE (21:12)
[2024-06-30] MEDS ORDERED: ATORVASTATIN 20 MG TAB ONE (21:12)
[2024-07-01] MEDS ORDERED: methylPREDNISolone SOD SUCCI 125 MG/2 ML VIAL ONE (06:12)
[2024-07-01] MEDS ORDERED: INSULIN ASPART (NovoLOG) 100 UNIT/ML VIAL SQ ONE (06:13)
[2024-07-01] MEDS ORDERED: ASPIRIN 81 MG ONE (08:17)
[2024-07-01] MEDS ORDERED: CHOLECALCIFEROL 125 MCG (5000 IU) TABLET ONE (08:18)
[2024-07-01] MEDS ORDERED: FAMOTIDINE 20 MG/2 ML VIAL ONE (08:18)
[2024-07-01] MEDS ORDERED: APIXABAN 5 MG TAB ONE (08:18)
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
--- NOTE | 2024-08-01 14:31 | XR ---
Patient Kaye Centeno ID [id number] Order # Procedure CXR 1VP EXAMINATION TYPE: XR chest 1V DATE OF EXAM: 06/30/2024 8:18 AM CLINICAL INDICATION: CHF/COPD COMPARISON: Chest radiographs from TECHNIQUE: XR chest 1V Frontal view of the chest. FINDINGS: Lungs/Pleura: There is no evidence of pleural effusion, focal consolidation, or pneumothorax. Pulmonary vascularity: Pulmonary vascular congestion. Heart/mediastinum: Cardiomediastinal silhouette is enlarged. Musculoskeletal: No acute osseous pathology. IMPRESSION: Cardiomegaly and mild pulmonary vascular congestion. Correlate with BNP for congestive heart failure.
--- NOTE | 2024-08-02 08:22 | XR ---
Patient Kaye Centeno ID [id number] Order # EXAMINATION TYPE: XR chest 1V DATE OF EXAM: 06/30/2024 COMPARISON: No comparison on downtime PACS INDICATION: Respiratory failure TECHNIQUE: Single frontal view of the chest is obtained. FINDINGS: The heart size is large. The pulmonary vasculature is normal. Linear atelectasis left base. IMPRESSION: 1. Cardiomegaly. 2. Atelectasis left lung base
--- NOTE | 2024-08-03 09:03 | XR ---
EXAMINATION TYPE: XR chest 2V DATE OF EXAM: 06/28/2024 COMPARISON: Chest radiographs from 05/07/2023 TECHNIQUE: XR chest 2V Frontal and lateral views of the chest. CLINICAL INDICATION:Female, 59 years old with history of SOB; FINDINGS: Lungs/Pleura: There is no evidence of pleural effusion, focal consolidation, or pneumothorax. Pulmonary vascularity: Pulmonary vascular congestion. Heart/mediastinum: Cardiomediastinal silhouette is enlarged and stable. Musculoskeletal: No acute osseous pathology. IMPRESSION: Cardiomegaly and mild pulmonary vascular congestion. Correlate with BNP for congestive heart failure. [facility], , 08/03/2024 9:01 AM
--- NOTE | 2024-08-17 11:05 | CT ---
CTA CHEST EXAMINATION TYPE: CT chest angio for PE DATE OF EXAM: 06/28/2024 INDICATION: CT DLP: mGycm, Automated exposure control for dose reduction was used. CONTRAST: Patient injected with mL of . COMPARISON: None available on PACS downtime TECHNIQUE: CT of the chest is performed on a spiral scan at 2 mm thick sections. Study is performed with intravenous contrast timed for evaluation for pulmonary embolism. This will limit additional po rtions of the evaluation. There is additional limitation due to beam hardening artifact. FINDINGS: There appears to be a persistent filling defect within a right lower lobe pulmonary artery. No Right heart strain identified. Report was called to the emergency room by Dr. Paula by telephone at the [facility] of interpretation 0925 hours 06/28/2024. No mediastinal or hilar adenopathy enlarged by CT criteria is evident. The ascending aorta diameter at the level of the main pulmonary artery is 3.5 cm. The main pulmonary artery diameter at the bifurcation is 2.9 cm. There is some thickening in the posterior right apex. Correlate for atelectasis. There is consolidation in the posterior medial left lung base. Correlate for atelectasis or pneumonia . Follow-up is recommended. Underlying mass is not excluded. Limited CT sections were through the upper abdomen. There is fullness of the left adrenal gland, the transverse dimension is 1.9 cm. IMPRESSION: 1. Right lower lobe pulmonary emboli. 2. Consolidation posterior medial left lower lobe and follow-up to clearing is recommended.
== END 2024-07-01 16:21 | DRG 134 ==
LOC: 2SICU 09:08
PROVIDERS: ADMIT Anesthesiology; ATTEND Anesthesiology
PROC: 5A09357 Assistance with Respiratory Ventilation, Less than 24 Consecutive Hours, Continuous Positive Airway Pressure (ICD-10-PCS; principal; 2024-06-28)
DX: I26.99 Other pulmonary embolism without acute cor pulmonale (principal); J96.21 Acute and chronic respiratory failure with hypoxia; F17.200 Nicotine dependence, unspecified, uncomplicated; J44.1 Chronic obstructive pulmonary disease with (acute) exacerbation; Z20.822 Contact with and (suspected) exposure to COVID-19; Z88.1 Allergy status to other antibiotic agents; I11.0 Hypertensive heart disease with heart failure; I50.32 Chronic diastolic (congestive) heart failure; E66.9 Obesity, unspecified; E11.65 Type 2 diabetes mellitus with hyperglycemia; F20.9 Schizophrenia, unspecified; J45.901 Unspecified asthma with (acute) exacerbation; E78.5 Hyperlipidemia, unspecified; Z79.82 Long term (current) use of aspirin; Z79.899 Other long term (current) drug therapy
CPT/HCPCS: 36600; 71045; 71046; 71275; 93970; 94002; 94640; 94660; 96374; 99291